=== PATIENT | female | born 1970 | race Caucasian/White ===

== ENCOUNTER 2024-01-05 18:12 | Emergency (ER) | payer OTHER ==
[~2024-01-05] VITALS: Ht 162.6 cm; Wt 108.9 kg
[2024-01-05 18:12] VITALS: BP_SYST 142; PULSE 93; RESP 20; TEMP 100.3; O2SAT 96
[2024-01-05 18:56] LABS: INFLUENZA TYPE A Negative (NEGATIVE); INFLUENZA TYPE B NEGATIVE (NEGATIVE)
[2024-01-05] MEDS: ACETAMINOPHEN 500 MG TABLET PO ONE (19:24)
[2024-01-05] MEDS: ONDANSETRON 4 MG ODT TAB PO ONE (19:47)
[2024-01-05] MEDS: KETOROLAC TROMETHAMINE 30 MG VIAL IM ONE (21:29)
[2024-01-05] MEDS ORDERED: ONDA-8 TL (21:41)
[2024-01-05] MEDS ORDERED: AMOX500C2 PO (21:41)
[2024-01-05] MEDS ORDERED: ACET325T PO (21:41)
[2024-01-05] MEDS ORDERED: FLUT16SP16 NS (21:41)
[2024-01-05 21:50] VITALS: BP_SYST 142; PULSE 93; RESP 20; TEMP 100.3; O2SAT 96
== END 2024-01-05 21:50 | disposition home or self-care (01) ==
LOC: SED 18:12
DX: J32.9 Chronic sinusitis, unspecified (principal); R51.9 Headache, unspecified; R11.0 Nausea; M79.10 Myalgia, unspecified site; Z79.899 Other long term (current) drug therapy; Z20.822 Contact with and (suspected) exposure to COVID-19
CPT/HCPCS: 99285; 70450; 87426; 36415; 96372; 87804 ×2; Q0162; J1885